=== PATIENT | female | born 1970 | race Caucasian/White ===

== ENCOUNTER 2016-08-13 00:13 | Emergency (ER) | payer OTHER ==
[2016-08-13 00:48] VITALS: BP 149/83; PULSE 101; TEMP 98.6; BMI 23.1
--- NOTE | 2016-08-13 00:55 | PDOC ---
History of Present Illness - History of Present Illness Initial Comments: 08/13/16 01:29 The patient is a 46 year old female who presents to the ED for chronic vaginal bleeding and abdominal pain. The patient states for the past 6 weeks she has had vaginal bleeding and has seen her JEWELRY COATER for this problem on July 29. She reports she was placed on a medication to take to help resolve her bleeding. She said she came to the ED today for increased pain with the bleeding. The patient notes she was scheduled for an endoscopy and colonoscopy today, which she canceled because she felt she had too much vaginal bleeding. The patient denies any transfusions in the past. She has no complaints of fever , chills, diarrhea, vomiting, nausea, SOB, chest pain, dysuria at this time. Social: Nonsmoker JEWELRY COATER: Dr. Boyle [employer] Recapper: Dr. Delacruz <Kiley Gann - Last Filed: 08/13/16 01:52> <Ml Sanders - Last Filed: 08/13/16 02:07> - General Chief Complaint: Vaginal Bleeding Stated Complaint: VAGINAL BLEED Time Seen by Provider: 08/13/16 00:54 Past History <Kiley Gann - Last Filed: 08/13/16 01:52> - Past Medical History HTN: Yes Thyroid Disease: Yes - Psycho/Social/Smoking Cessation Hx Suicidal Ideation: No Smoking History: Never smoked <Ml Sanders - Last Filed: 08/13/16 02:07> - Past Medical History Allergies/Adverse Reactions: Allergies Allergy/AdvReac Type Severity Reaction Status Date / Time azithromycin Allergy Verified 08/13/16 00:34 coconut oil Allergy Verified 08/13/16 00:34 grass pollen Allergy Verified 08/13/16 00:34 mold Allergy Verified 08/13/16 00:34 peanut Allergy Verified 08/13/16 00:34 Penicillins Allergy Verified 08/13/16 00:34 pineapple Allergy Verified 08/13/16 00:34 Sulfa (Sulfonamide Allergy Verified 08/13/16 00:34 Antibiotics) tetracycline Allergy Verified 08/13/16 00:34 mildew Allergy Uncoded 08/13/16 00:34 Review of Systems - Review of Systems Able to Perform ROS?: Yes Comments:: 08/13/16 01:36 CONSTITUTIONAL: Absent: fever, chills, diaphoresis, generalized weakness, malaise, loss of appetite HEENT: Absent: rhinorrhea, nasal congestion, throat pain, throat swelling, difficulty swallowing, mouth swelling, ear pain, eye pain, visual Changes CARDIOVASCULAR: Absent: chest pain, syncope, palpitations, irregular heart rate, lightheadedness , peripheral edema RESPIRATORY: Absent: cough, shortness of breath, dyspnea with exertion, orthopnea, wheezing, stridor, hemoptysis GASTROINTESTINAL: +Abdominal pain. Absent: abdominal distension, nausea, vomiting, diarrhea, constipation, melena, hematochezia GENITOURINARY: +Vaginal bleeding. Absent: dysuria, frequency, urgency, hesitancy, hematuria, flank pain, genital pain MUSCULOSKELETAL: Absent: myalgia, arthralgia, joint swelling SKIN: Absent: rash, itching, pallor HEMATOLOGIC/IMMUNOLOGIC: Absent: easy bleeding, easy bruising, lymphadenopathy, frequent infections ENDOCRINE: Absent: unexplained weight gain, unexplained weight loss, heat intolerance, cold intolerance NEUROLOGIC: Absent: headache, focal weakness or paresthesias, dizziness, unsteady gait, seizure, mental status changes, bladder or bowel incontinence PSYCHIATRIC: Absent: anxiety, depression, suicidal or homicidal ideation, hallucinations. <Kiley Gann - Last Filed: 08/13/16 01:52> *Physical Exam - Vital Signs Last Vital Signs Temp Pulse Resp BP Pulse Ox 98.6 F 101 H 18 149/83 100 08/13/16 00:34 08/13/16 00:34 08/13/16 00:34 08/13/16 00:34 08/13/16 00:34 - Physical Exam Comments: 08/13/16 01:37 GENERAL: Well developed, well nourished. Awake and alert. No acute distress. HEENT: Normocephalic, atraumatic. PERRLA, EOMI. No conjunctival pallor. Sclera are non- icteric. Moist mucous membranes. Oropharynx is clear. NECK: Supple. Full ROM. No JVD. Carotid pulses 2+ and symmetric, without bruits. No thyromegaly. No lymphadenopathy. CARDIOVASCULAR: Regular rate and rhythm. No murmurs, rubs, or gallops. Distal pulses are 2+ and symmetric. PULMONARY: No evidence of respiratory distress. Lungs clear to auscultation bilaterally. No wheezing, rales or rhonchi. ABDOMINAL: +Not able to have a reproducible abdominal exam w the patient. Non- distended.Normoactive bowel sounds. MUSCULOSKELETAL Normal range of motion at all joints. No bony deformities or tenderness. No CVA tenderness. EXTREMITIES: No cyanosis. No clubbing. No edema. No calf tenderness. SKIN: Warm and dry. Normal capillary refill. No rashes. No jaundice. NEUROLOGICAL: Alert, awake, appropriate. Cranial nerves 2-12 intact. No deficits to light touch and temperature in face, upper extremities and lower extremities. No motor deficits in the in face, upper extremities and lower extremities. Normoreflexic in the upper and lower extremities. PSYCHIATRIC: Cooperative. Good eye contact. Appropriate mood and affect. <Kiley Gann - Last Filed: 08/13/16 01:52> - Vital Signs Last Vital Signs Temp Pulse Resp BP Pulse Ox 98.6 F 101 H 18 149/83 100 08/13/16 00:34 08/13/16 00:34 08/13/16 00:34 08/13/16 00:34 08/13/16 00:34 <Ml Sanders - Last Filed: 08/13/16 02:07> ED Treatment Course - LABORATORY CBC & Chemistry Diagram: 08/13/16 00:57 08/13/16 00:57 - RADIOLOGY Radiograph Interpretation: 08/13/16 01:52 EXAM: Abdominal ultrasound limited. DATE OF SERVICE: 2016-08-13 01:20:59.0 COMPARISON: None FINDINGS: Visualized hepatic parenchyma is homogeneous. There are no obvious gallstones. Gallbladder wall is normal in thickness. Common bile duct diameter within normal limits. Visualized pancreas is grossly unremarkable. There is no hydronephrosis on the right. THIS DOCUMENT HAS BEEN ELECTRONICALLY SIGNED Donald Lama MD 08/13/2016 01:46 EST <Kiley Gann - Last Filed: 08/13/16 01:52> - LABORATORY CBC & Chemistry Diagram: 08/13/16 00:57 08/13/16 00:57 <Ml Sanders - Last Filed: 08/13/16 02:07> Medical Decision Making - Medical Decision Making 08/13/16 01:16 this 46 yo female p/w complaints of vaginal bleeding for 6 weeks . She saw her armed guard on 07/29/16 for this and she discussed medical tx options vs surgery and she decided she did not want surgery. She also had c/o epigastric pain. -also she states she was supposed to have an endoscopy and colonoscopy today but cancelled it because she was uncomfortable w the vag bleeding -when asked why she came tonight ,the pt said the epigastric pain worsened -she denies nausea,vomiting,fever,chills,cough,chest pain 08/13/16 01:49 hbg is 9.8 and hematocrit is 30.5. pt doesn't require transfusion cbc is wnl abd ultrasound has a CBD wnl and a normal gallbladder,there is no hydronephrosis on the right plan - if chemistries are normal ,pt will be discharged to follow up with her regular physician 08/13/16 01:55 <Ml Sanders - Last Filed: 08/13/16 02:07> *DC/Admit/Observation/Transfer - Attestations Scribe Attestion: 08/13/16 01:29 Documentation prepared by Kiley Gann, acting as pediatrician/medical doctor for Ml Sanders MD/DO. <Kiley Gann - Last Filed: 08/13/16 01:52> <Ml Sanders - Last Filed: 08/13/16 02:07> Diagnosis at time of Disposition: Hyperglycemia, Vaginal bleeding Anemia Qualifiers: Anemia type: other cause Other causes of anemia: other cause, not classified Qualified Code(s): D64.89 - Other specified anemias - Discharge Dispostion Disposition: HOME Condition at time of disposition: Stable - Referrals Referrals: Ralf Madden [Primary Care Provider] - - Patient Instructions Printed Discharge Instructions: DI for Iron Deficiency Anemia-Adult, DI for Hyperglycemia -- Adult, DI for Vaginal Bleeding Additional Instructions: It is important to follow up with your material handling warehouse supervisor for your vaginal bleeding. Take iron for your anemia Your glucose was 212 and this needs to be repeated and you need to see your primary doctor for further evaluation
[2016-08-13 01:33] LABS: BASOPHIL 0.4 % (0-2.0); EOSINOPHIL 0.2 % (0-4.5); MCH 27.9 pg (25.7-33.7); MCHC 32.2 g/dl (32.0-36.0); MEAN CELL VOLUME 86.9 fl (80-96); MEAN PLT VOLUME 9.4 fl (7.5-11.1); NEUTROPHILS 87.9 % (42.8-82.8); PLATELET COUNT 246 K/MM3 (134-434); RDW 13.8 % (11.6-15.6); WHITE BLOOD COUNT 9.9 K/mm3 (4.0-10.0)
[2016-08-13 01:54] LABS: ALBUMIN 3.8 g/dl (3.4-5.0); ALK PHOS 106 U/L (45-117); ANION GAP 12 (8-16); BILIRUBIN,TOTAL 0.8 mg/dL (0.2-1.0); CALCIUM 8.4 mg/dL (8.5-10.1); CO2 24 mmol/L (21-32); CREATININE 0.6 mg/dL (0.55-1.02); GLUCOSE,RANDOM 212 mg/dL (74-106); SGOT/AST 11 U/L (15-37); SGPT/ALT 16 U/L (12-78); TOT PROT 7.3 g/dl (6.4-8.2)
== END 2016-08-13 02:17 | disposition home or self-care (01) ==
LOC: JER 00:13
DX: D64.89 Other specified anemias (principal); R73.9 Hyperglycemia, unspecified; N93.9 Abnormal uterine and vaginal bleeding, unspecified
CPT/HCPCS: 36415; 76705-TC; 80053; 83690; 85025; 86850; 86900; 86901; 99283-25

== ENCOUNTER 2016-08-15 05:48 | Emergency (ER) | payer OTHER ==
[2016-08-15 06:13] VITALS: BMI 24.0
--- NOTE | 2016-08-15 06:32 | PDOC ---
History of Present Illness - General History Source: Patient Exam Limitations: No Limitations - History of Present Illness Initial Comments: 08/15/16 06:41 The patient is a 46 year old female with significant past medical history of hypertension who presents to the ED for persistent vaginal bleeding and abdominal pain. Patient was seen here in the ER on 08/13 for similar symptoms where she had an extensive workup including an ultrasound of the abdomen, which revealed CBD wnl and a normal gallbladder, there is no hydronephrosis on the right. Patient returns for persistent vaginal bleeding. Denies vaginal discharge. She reports she started to have vaginal bleeding on July 04. On July 29, she had a vaginal ultrasound done, which she states revealed that she had fibroids. She states she was started on provera to control bleeding, however after taking provera, there were no positive results. The patient denies fever, chills, cough, SOB, chest pain, and palpitations. The patient denies nausea, vomiting, and diarrhea. The patient denies dysuria, hematuria, urgency, and frequency. Allergies: azithromycin, penicillins, sulfa, tetracycline Social History: No alcohol, tobacco, or drug use reported. Past Surgical History: None reported PCP: Dr. Ralf Madden ENTERPRISE INFRASTRUCTURE ARCHITECT: Dr. Eliana Boyle Photocopier Technician: Dr. Pao Warren <Nishi Heard - Last Filed: 08/15/16 06:41> - General History Source: Patient <Kenneth Jerome - Last Filed: 08/18/16 19:48> - General Chief Complaint: Vaginal Bleeding Stated Complaint: PAIN,VAGINAL BLEEDING Time Seen by Provider: 08/15/16 06:32 Past History <Nishi Heard - Last Filed: 08/15/16 06:41> - Past Medical History HTN: Yes Thyroid Disease: Yes - Immunization History Immunization Up to Date: Yes - Psycho/Social/Smoking Cessation Hx Suicidal Ideation: No Smoking History: Never smoked Information on smoking cessation initiated: No Hx Alcohol Use: No Drug/Substance Use Hx: No Substance Use Type: None <DariusmingoKenneth - Last Filed: 08/18/16 19:48> - Past Medical History Allergies/Adverse Reactions: Allergies Allergy/AdvReac Type Severity Reaction Status Date / Time azithromycin Allergy Verified 08/15/16 06:13 coconut oil Allergy Verified 08/15/16 06:13 grass pollen Allergy Verified 08/15/16 06:13 mold Allergy Verified 08/15/16 06:13 peanut Allergy Verified 08/15/16 06:13 Penicillins Allergy Verified 08/15/16 06:13 pineapple Allergy Verified 08/15/16 06:13 Sulfa (Sulfonamide Allergy Verified 08/15/16 06:13 Antibiotics) tetracycline Allergy Verified 08/15/16 06:13 mildew Allergy Uncoded 08/15/16 06:13 Home Medications: Ambulatory Orders Levothyroxine [Synthroid -] 112 mcg PO DAILY 08/15/16 Metoprolol Succinate [Toprol Xl -] 25 mg PO DAILY 08/15/16 Potassium Chloride [K-Dur -] 10 meq PO DAILY 08/15/16 Tramadol HCl 50 mg PO Q6H PRN #12 tablet MDD 4 tabs 08/15/16 Review of Systems - Review of Systems Able to Perform ROS?: Yes Comments:: 08/15/16 06:41 CONSTITUTIONAL: Absent: fever, no chills, no fatigue EYES: Absent: visual changes ENT: Absent: ear pain, no sore throat CARDIOVASCULAR: Absent: chest pain, no palpitations RESPIRATORY: Absent: cough, no SOB GI: +abdominal pain Absent: no nausea, no vomiting, no constipation, no diarrhea GENITOURINARY: +vaginal bleeding Absent: dysuria, no frequency, no hematuria MUSKULOSKELETAL: Absent: back pain, no arthralgia, no myalgia SKIN: Absent: rash NEURO: Absent: headache <Bharrat,Nishi - Last Filed: 08/15/16 06:41> *Physical Exam - Vital Signs Last Vital Signs Temp Pulse Resp BP Pulse Ox 97.6 F 108 H 18 125/80 100 08/15/16 05:50 08/15/16 05:50 08/15/16 05:50 08/15/16 05:50 08/15/16 05:50 - Physical Exam Comments: 08/15/16 06:42 GENERAL: Well-appearing, well-nourished. No apparent distress. HEENT: Normocephalic, atraumatic. PERRL, EOM intact. CARDIOVASCULAR: Normal S1, S2. Regular rate and rhythm. PULMONARY: Clear to auscultation bilaterally. ABDOMEN: Soft, non-distended, non-tender. PELVIC: Moderate amount of bright red blood in the vaginal vault. No CMT. No adnexal mass/tenderness. No fundal tenderness. EXTREMITIES: Normal ROM in all four extremities. No gross deformities. SKIN: Warm, dry. No rash NEUROLOGICAL: No focal neurological deficits. <Nishi Heard - Last Filed: 08/15/16 06:41> - Vital Signs Last Vital Signs Temp Pulse Resp BP Pulse Ox 97.6 F 108 H 18 125/80 100 08/15/16 05:50 08/15/16 05:50 08/15/16 05:50 08/15/16 05:50 08/15/16 05:50 <Kenneth Jerome - Last Filed: 08/18/16 19:48> ED Treatment Course - LABORATORY CBC & Chemistry Diagram: 08/15/16 06:45 08/15/16 06:45 <Kenneth Jerome - Last Filed: 08/18/16 19:48> Medical Decision Making - Medical Decision Making 08/18/16 19:48 Dr. Jerome: The scribe's documentation has been prepared under my direction and personally reviewed by me in its entirery. I confirm that the note above accurately reflects all work, treatment, procedures, and medical decision making performed by me. <Kenneth Jerome - Last Filed: 08/18/16 19:48> *DC/Admit/Observation/Transfer - Attestations Scribe Attestion: 08/15/16 06:42 Documentation prepared by Nishi Heard, acting as medical program specialist for Kenneth Jerome MD <Nishi Heard - Last Filed: 08/15/16 06:41> - Discharge Dispostion Admit: No <Kenneth Jerome - Last Filed: 08/18/16 19:48> Diagnosis at time of Disposition: Vaginal bleeding Anemia Qualifiers: Anemia type: unspecified type Qualified Code(s): D64.9 - Anemia, unspecified - Discharge Dispostion Disposition: HOME Condition at time of disposition: Stable - Prescriptions Prescriptions: Tramadol HCl 50 mg PO Q6H PRN #12 tablet MDD 4 tabs PRN Reason: Pain - Referrals Referrals: Ralf Madden [Primary Care Provider] - - Patient Instructions Printed Discharge Instructions: DI for Vaginal Bleeding
[2016-08-15 07:05] LABS: BASOPHIL 0.2 % (0-2.0); EOSINOPHIL 0.4 % (0-4.5); MCH 27.6 pg (25.7-33.7); MCHC 32.3 g/dl (32.0-36.0); MEAN CELL VOLUME 85.6 fl (80-96); MEAN PLT VOLUME 8.8 fl (7.5-11.1); NEUTROPHILS 83.7 % (42.8-82.8); PLATELET COUNT 206 K/MM3 (134-434); RDW 14.1 % (11.6-15.6); WHITE BLOOD COUNT 9.7 K/mm3 (4.0-10.0)
[2016-08-15 07:24] LABS: INR 1.14 (0.82-1.09); PROTHROMBIN TIME (PATIENT) 12.6 SEC (9.98-11.88)
[2016-08-15 07:33] LABS: ALBUMIN 3.5 g/dl (3.4-5.0); ALK PHOS 104 U/L (45-117); ANION GAP 9 (8-16); BILIRUBIN,TOTAL 0.3 mg/dL (0.2-1.0); CO2 25 mmol/L (21-32); CREATININE 0.6 mg/dL (0.55-1.02); GLUCOSE,RANDOM 296 mg/dL (74-106); MAGNESIUM 1.8 mg/dL (1.8-2.4); SGOT/AST 5 U/L (15-37); SGPT/ALT 14 U/L (12-78); TOT PROT 6.6 g/dl (6.4-8.2)
[2016-08-15 07:55] VITALS: TEMP 97.9
[2016-08-15 08:22] LABS: URINE APPEARANCE CLOUDY; URINE BILIRUBIN NEGATIVE (NEGATIVE); URINE COLOR RED; URINE GLUCOSE (UA) 3+ (NEGATIVE); URINE KETONE NEGATIVE (NEGATIVE); URINE LEUK ESTERASE NEGATIVE (NEGATIVE); URINE NITRITE NEGATIVE (NEGATIVE); URINE UROBILINOGEN NEGATIVE E.U./dl (0.2-1.0)
[2016-08-15 08:27] LABS: URINE BLOOD 2+ (NEGATIVE); URINE PROTEIN 2+ (NEGATIVE)
[2016-08-15 08:29] LABS: URINE RBC 6728 /hpf (0-3); URINE WBC 3 /hpf (3-5)
--- NOTE | 2016-08-15 09:57 | PDOC ---
*Physical Exam - Vital Signs Last Vital Signs Temp Pulse Resp BP Pulse Ox 97.9 F 100 H 18 110/62 100 08/15/16 07:20 08/15/16 07:20 08/15/16 07:20 08/15/16 07:20 08/15/16 07:20 ED Treatment Course - LABORATORY CBC & Chemistry Diagram: 08/15/16 06:45 08/15/16 06:45 - ADDITIONAL ORDERS Additional order review: Laboratory Results 08/15/16 08/15/16 08/15/16 06:45 06:45 06:45 INR Sodium 140 Potassium 3.6 Chloride 106 Carbon Dioxide 25 Anion Gap 9 BUN 13 Creatinine 0.6 Creat Clearance w eGFR > 60 Random Glucose 296 H D Calcium 8.0 L Magnesium 1.8 Total Bilirubin 0.3 D AST 5 L D ALT 14 Alkaline Phosphatase 104 Total Protein 6.6 Albumin 3.5 Lipase 220 Serum , Qual Negative Urine Color Red Urine Appearance Cloudy Urine pH 5.0 Ur Specific [place] 1.035 Urine Protein 2+ H Urine Glucose (UA) 3+ H Urine Ketones Negative Urine Blood 2+ H Urine Nitrite Negative Urine Bilirubin Negative Urine Urobilinogen Negative Ur Leukocyte Esterase Negative Urine RBC 6728 Urine WBC 3 Blood Type B POSITIVE Antibody Screen Negative 08/15/16 06:45 INR 1.14 Sodium Potassium Chloride Carbon Dioxide Anion Gap BUN Creatinine Creat Clearance w eGFR Random Glucose Calcium Magnesium Total Bilirubin AST ALT Alkaline Phosphatase Total Protein Albumin Lipase Serum , Qual Urine Color Urine Appearance Urine pH Ur Specific [place] Urine Protein Urine Glucose (UA) Urine Ketones Urine Blood Urine Nitrite Urine Bilirubin Urine Urobilinogen Ur Leukocyte Esterase Urine RBC Urine WBC Blood Type Antibody Screen 08/15/16 06:45 RBC 3.15 L MCV 85.6 MCHC 32.3 RDW 14.1 MPV 8.8 Neutrophils % 83.7 H Lymphocytes % 8.3 D Monocytes % 7.4 Eosinophils % 0.4 D Basophils % 0.2 Medical Decision Making - Medical Decision Making 08/15/16 10:24 Lengthy discussion with patient at bedside. We reviewed ultrasound results. She need urgent railroad track repair supervisor follow-up. She previously followed up in the [facility] (formerly [facility] then was recently evaluated by Dr. Boyle. Dr. Boyle is currently molded goods controls operator. Pt is now stating that she does not want to return to Dr. Boyle, would prefer to go back to clinic. I called the clinic to expedite her outpatient appointment- the soonest they can schedule her is on Thursday (it is currently Thursday), but it is with a male provider. Patient prefers female provider, but will consider. If she waits for female provider, it will be at least 2 weeks before she can get an appointment. I discussed this with her. As an alternative, will give her a list of railroad track repair supervisor providers for this hospital, so she can see if any accept her insurance. I counseled her to continue the iron supplements. She does not yet need a transfusion, but if she gets more symptomatic, will likely need blood transfusion. I discussed with her mother, as well, at the patient's request. *DC/Admit/Observation/Transfer Diagnosis at time of Disposition: Vaginal bleeding Anemia Qualifiers: Anemia type: unspecified type Qualified Code(s): D64.9 - Anemia, unspecified - Discharge Dispostion Disposition: HOME Condition at time of disposition: Stable Admit: No - Prescriptions Prescriptions: Tramadol HCl 50 mg PO Q6H PRN #12 tablet MDD 4 tabs PRN Reason: Pain - Referrals Referrals: Ralf Madden [Primary Care Provider] - - Patient Instructions Printed Discharge Instructions: DI for Vaginal Bleeding - Post Discharge Activity
[2016-08-15 10:24] VITALS: BP 112/61; PULSE 87
== END 2016-08-15 10:40 | disposition home or self-care (01) ==
LOC: JER 05:48
DX: N93.8 Other specified abnormal uterine and vaginal bleeding (principal); D64.9 Anemia, unspecified; D25.9 Leiomyoma of uterus, unspecified; I10 Essential (primary) hypertension; E03.9 Hypothyroidism, unspecified
CPT/HCPCS: 36415; 76856-TC; 80053; 81003; 81015; 83690; 83735; 84703; 85025; 85610; 86850; 86900; 86901; 99284-25

== ENCOUNTER 2016-09-18 18:14 | Emergency (ER) | payer OTHER ==
[2016-09-18 18:30] VITALS: BMI 24.9
--- NOTE | 2016-09-18 20:55 | PDOC ---
History of Present Illness - General History Source: Patient, Parent(s) (Mother ), Old Records Exam Limitations: No Limitations - History of Present Illness Initial Comments: 09/18/16 22:07 The patient is a 46 year old female, with a significant past medical history of hypertension and hypothyroidism, who presents to the emergency department sent in by Dr. Buchanan for evaluation. Dr. Buchanan reports that she is scheduled for a D&C secondary to dysfunctional uterine bleeding on 10/02/2016 but might need a blood transfusion as part of pre-surgery clearance. Currently in the ED, that patient denies fever, chills, nausea, vomiting or abdominal pain. The patient's mother is at the bedside. Allergies: Azithromycin, Penicillins, Sulfa, Tetracycline, Coconut Oil, Grass Pollen, Mold, Peanut, Pineapple, Mildew. Past Surgical History: None reported. Social History: Non smoker. Denies alcohol or drug use. PCP: Dr. Madden <Martha Lau - Last Filed: 09/18/16 22:17> <Kehinde Newberry - Last Filed: 09/18/16 22:31> - General Chief Complaint: Blood Transfusion Stated Complaint: PCP SENT/BLOOD TRANSFUSION Time Seen by Provider: 09/18/16 20:55 Past History <Martha Lau - Last Filed: 09/18/16 22:17> - Past Medical History HTN: Yes Thyroid Disease: Yes - Reproductive History Cervical CA: No Dysfunctional Uterine Bleeding: No Ectopic : No Endometrial CA: No Polycystic Ovaries: No Therapeutic (s) & number: No Tubal Ligation: No - Immunization History Immunization Up to Date: Yes - Psycho/Social/Smoking Cessation Hx Suicidal Ideation: No Smoking History: Never smoked Hx Alcohol Use: No Drug/Substance Use Hx: No Substance Use Type: None <Kehinde Newberry - Last Filed: 09/18/16 22:31> - Past Medical History Allergies/Adverse Reactions: Allergies Allergy/AdvReac Type Severity Reaction Status Date / Time azithromycin Allergy Verified 09/18/16 18:30 coconut oil Allergy Verified 09/18/16 18:30 grass pollen Allergy Verified 09/18/16 18:30 mold Allergy Verified 09/18/16 18:30 peanut Allergy Verified 09/18/16 18:30 Penicillins Allergy Verified 09/18/16 18:30 pineapple Allergy Verified 09/18/16 18:30 Sulfa (Sulfonamide Allergy Verified 09/18/16 18:30 Antibiotics) tetracycline Allergy Verified 09/18/16 18:30 mildew Allergy Uncoded 09/18/16 18:30 Home Medications: Ambulatory Orders Levothyroxine [Synthroid -] 112 mcg PO DAILY 08/15/16 Metoprolol Succinate [Toprol Xl -] 25 mg PO DAILY 08/15/16 Potassium Chloride [K-Dur -] 10 meq PO DAILY 08/15/16 Tramadol HCl 50 mg PO Q6H PRN #12 tablet MDD 4 tabs 08/15/16 Review of Systems - Review of Systems Able to Perform ROS?: Yes Comments:: 09/18/16 21:48 CONSTITUTIONAL: No fever, no chills, no fatigue EYES: No visual changes ENT: No ear pain, no sore throat CARDIOVASCULAR: No chest pain, no palpitations RESPIRATORY: No cough, no SOB GI: No abdominal pain, no nausea, no vomiting, no constipation, no diarrhea GENITOURINARY: +Vaginal bleeding. No dysuria, no frequency, no hematuria MUSCULOSKELETAL: No back pain, no joint pain, no myalgias SKIN: No rash NEURO: No headache <Martha Lau - Last Filed: 09/18/16 22:17> *Physical Exam - Vital Signs Last Vital Signs Temp Pulse Resp BP Pulse Ox 98.4 F 112 H 18 136/77 100 09/18/16 18:27 09/18/16 18:27 09/18/16 18:27 09/18/16 18:27 09/18/16 18:27 - Physical Exam Comments: 09/18/16 21:46 CONSTITUTIONAL: Well-appearing; well-nourished; in no apparent distress. HEAD: Normocephalic; atraumatic. EYES: PERRL; EOM intact. ENMT: External appears normal; normal oropharynx. NECK: Supple; non-tender; no cervical lymphadenopathy. CARD: Normal S1, S2; no murmurs, rubs, or gallops. RESP: Normal chest excursion with respiration; breath sounds clear and equal bilaterally; no wheezes, rhonchi, or rales. ABD: Soft, non-distended; non-tender; no palpable organomegaly, no palpable hernias. EXT: Normal ROM in all four extremities; non-tender to palpation; distal pulses intact. SKIN: Warm, dry, no rash. NEURO: No focal neurological deficiencies. <Martha Lau - Last Filed: 09/18/16 22:17> - Vital Signs Last Vital Signs Temp Pulse Resp BP Pulse Ox 98.4 F 112 H 18 136/77 100 09/18/16 18:27 09/18/16 18:27 09/18/16 18:27 09/18/16 18:27 09/18/16 18:27 <Kehinde Newberry - Last Filed: 09/18/16 22:31> ED Treatment Course - LABORATORY CBC & Chemistry Diagram: 09/18/16 21:25 09/18/16 21:25 <Martha Lau - Last Filed: 09/18/16 22:17> - LABORATORY CBC & Chemistry Diagram: 09/18/16 21:25 09/18/16 21:25 <Kehinde Newberry - Last Filed: 09/18/16 22:31> Medical Decision Making - Medical Decision Making 09/18/16 22:[address] Buchanan at 22:07. Referred to answering service , awaiting callback. Dr. Dhaliwal returned call at 22:08, case discussed. <Martha Lau - Last Filed: 09/18/16 22:17> - Medical Decision Making 09/18/16 22:29 Patient is well-appearing 46-year-old female with history of dysfunctional uterine bleeding who presents to the ER for symptoms of anemia. Patient reports that intermittently she develops dyspnea with exertion that requires her to stop. In the ER, patient is awake and alert, normotensive and mildly tachycardic. Conjunctiva are pink. H&H is noted to be 8.3 and 27.8 respectively. This time, I do not feel the patient requires packed cell transfusions. I discussed the case with Dr. Cobian of [facility]. She agrees with the plan of care. Patient will continue taking iron supplementation as prescribed earlier and will follow-up with [facility]. <Kehinde Newberry - Last Filed: 09/18/16 22:31> *DC/Admit/Observation/Transfer - Attestations Scribe Attestion: 09/18/16 21:08 Documentation prepared by Martha Lau, acting as manager medical device for Kehinde Newberry MD. <Martha Lau - Last Filed: 09/18/16 22:17> - Attestations Physician Attestion: 09/18/16 22:29 The documentation was prepared by the scribe under my direct supervision. I have reviewed the documentation which correctly represents the findings, medical decision-making and critical action taken by me. <Kehinde Newberry - Last Filed: 09/18/16 22:31> Diagnosis at time of Disposition: Vaginal bleeding Anemia Qualifiers: Anemia type: iron deficiency Iron deficiency anemia type: chronic blood loss Qualified Code(s): D50.0 - Iron deficiency anemia secondary to blood loss ( chronic) - Discharge Dispostion Disposition: HOME Condition at time of disposition: Stable - Referrals Referrals: Ralf Madden [Primary Care Provider] - Mora Buchanan DO [Staff Physician] - - Patient Instructions Printed Discharge Instructions: DI for Vaginal Bleeding, DI for Iron Deficiency Anemia-Adult
[2016-09-18 21:45] LABS: BASOPHIL 0.2 % (0-2.0); EOSINOPHIL 0.9 % (0-4.5); MCH 22.8 pg (25.7-33.7); MCHC 29.8 g/dl (32.0-36.0); MEAN CELL VOLUME 76.4 fl (80-96); NEUTROPHILS 67.9 % (42.8-82.8); PLATELET COUNT 508 K/MM3 (134-434); RDW 17.2 % (11.6-15.6); WHITE BLOOD COUNT 6.2 K/mm3 (4.0-10.0)
[2016-09-18 21:58] LABS: INR 1.2 (0.82-1.09); PROTHROMBIN TIME (PATIENT) 13.3 SEC (9.98-11.88)
[2016-09-18 22:35] VITALS: BP 140/84; PULSE 103; TEMP 98.5
[2016-09-18 22:36] LABS: ALBUMIN 3.3 g/dl (3.4-5.0); ALK PHOS 81 U/L (45-117); ANION GAP 12 (8-16); BILIRUBIN,TOTAL 0.4 mg/dL (0.2-1.0); CALCIUM 9.2 mg/dL (8.5-10.1); CO2 28 mmol/L (21-32); CREATININE 0.7 mg/dL (0.55-1.02); GLUCOSE,RANDOM 184 mg/dL (74-106); SGOT/AST 13 U/L (15-37); SGPT/ALT 19 U/L (12-78); TOT PROT 7.8 g/dl (6.4-8.2)
== END 2016-09-18 23:09 | disposition home or self-care (01) ==
LOC: JER 18:14
DX: N93.8 Other specified abnormal uterine and vaginal bleeding (principal); D50.0 Iron deficiency anemia secondary to blood loss (chronic)
CPT/HCPCS: 36415; 80053; 85025; 85610; 86850; 86900; 86901; 99282-25

== ENCOUNTER → 2016-10-02 | Day surgery (SDC) | payer OTHER ==
[2016-09-30 17:49] VITALS: BMI 24.0
== END ==
LOC: JASU-SURG 05:10
PROVIDERS: ATTEND Obstetrics & Gynecology
DX: N93.9 Abnormal uterine and vaginal bleeding, unspecified (principal)